=== PATIENT | male | born 1955 | race Caucasian/White ===

== ENCOUNTER 2016-06-11 21:53 | Emergency (ER) | payer OTHER ==
[2016-06-11 22:10] VITALS: BP 180/90
[2016-06-11] MEDS ORDERED: Lidocaine 1% with EPINEPHrine 1:100,000 50 ML MDV INFILT ONE (22:10)
[2016-06-11] MEDS ORDERED: Bacitracin Oint 1 GM U/D Packet TOP ONE (22:44)
--- NOTE | 2016-06-11 22:48 | EDM.PDOC ---
[id number] PROCEEDURE EARLIER WONT STOP BLEEDING Time Seen by Provider: 06/11/16 22:20 Source: Reports: Patient History Limitations: Reports: No limitations - History of Present Illness INITIAL COMMENTS - FREE TEXT/NARRATIVE: 60-year-old male who is a benign-appearing vascular mole on his chest that was incised earlier today by another physician. He continues to bleed. Timing: Reports: still present Location, Skin: Reports: chest - Related Data Allergies Allergy/AdvReac Type Severity Reaction Status Date / Time No Known Allergies Allergy Verified 06/11/16 22:11 Home Meds: Ambulatory Orders Medication Instructions Recorded Confirmed Aspirin [Ecotrin] 81 mg PO DAILY 06/11/16 06/11/16 Lisinopril 40 mg PO DAILY 06/11/16 06/11/16 Metoprolol Tartrate 25 mg PO BID 06/11/16 06/11/16 atorvaSTATin [Lipitor] 80 mg PO BEDTIME 06/11/16 06/11/16 Past Medical History Cardiovascular History: Reports: High cholesterol, Hypertension Oncologic (Cancer) History: Reports: Prostate Dermatologic History: Reports: Other (see below) Other Dermatologic History: Chest skin lesion - Past Surgical History Cardiovascular Surgical History: Reports: Percutaneous transluminal angioplasty Male Surgical History: Reports: Prostatectomy Oncologic Surgical History: Reports: Other (see below) Other Oncologic Surgeries/Procedures: prostrate Dermatological Surgical History: Reports: Other (see below) Social & Family History - Tobacco Use Smoking Status *Q: Former Smoker Used Tobacco, but Quit: Yes Month Tobacco Last Used: can't remember - Caffeine Use Caffeine Use: Reports: Coffee, Soda - Recreational Drug Use Recreational Drug Use: No ED ROS GENERAL - Review of Systems Review Of Systems: See Below Constitutional: Denies: fever, chills Respiratory: Denies: Shortness of Breath, Cough GI/Abdominal: Denies: Abdominal pain, Nausea, Vomiting ED EXAM, SKIN/RASH Exam: See Below Exam Limited By: No limitations General Appearance: alert, no apparent distress Respiratory/Chest: no respiratory distress, other (Just left of the sternum the patient has a bleeding, smooth, dark mole like lesion with a central puncture which is actively bleeding) Course - Vital Signs Last Recorded V/S: Last Vital Signs Temp 97.9 F 06/11/16 22:10 Pulse 103 H 06/11/16 22:10 Resp 16 06/11/16 22:10 BP 180/90 H 06/11/16 22:10 Pulse Ox 98 06/11/16 22:10 - Orders/Labs/Meds Meds: Medications Discontinued Medications Generic Name Dose Route Start Last Admin Trade Name Gurvinder PRN Reason Stop Dose Admin Bacitracin 1 dose 06/11/16 22:44 06/11/16 23:03 Bacitracin Oint 1 Gm TOP 06/11/16 22:45 1 dose ONETIME ONE Administration Lidocaine/Epinephrine 30 ml 06/11/16 22:10 06/11/16 23:02 Xylocaine 1% With Epinephrine 1:100,000 INFILT 06/11/16 22:11 3 ml ONETIME ONE Administration - Re-Assessments/Exams Free Text/Narrative Re-Assessment/Exam: 06/11/16 22:47 The area was infiltrated with 1% lidocaine with epinephrine. Using a #11 scalpel an elliptical incision was made around the lesion and it was removed with blunt dissection. A small amount of undermining was done with a curved iris scissors and 5 4-0 Ethilon sutures were used to close the laceration. Bacitracin and a Band-Aid were applied. It was offered to send the lesion to pathology but the patient declined. Departure - Departure Time of Disposition: 23:07 Disposition: Home, Self-Care 01 Condition: good Clinical Impression: Postoperative hemorrhage of skin following dermatologic procedure Instructions: Sutured Wound Care Referrals: PCP,None [Primary Care Provider] - Forms: ED Department Discharge Care Plan Goals: Keep wound covered and clean while healing, and sutures can be removed in 7-10 days.
== END 2016-06-11 23:07 | disposition home or self-care (01) ==
LOC: JP.ED 21:53
PROC: 0HB5XZZ Excision of Chest Skin, External Approach (ICD-10-PCS; principal; 2016-06-11)
DX: L76.21 Postprocedural hemorrhage of skin and subcutaneous tissue following a dermatologic procedure (principal); Y83.8 Other surgical procedures as the cause of abnormal reaction of the patient, or of later complication, without mention of misadventure at the time of the procedure; E78.00 Pure hypercholesterolemia, unspecified; I10 Essential (primary) hypertension; Z98.61 Coronary angioplasty status; Z87.891 Personal history of nicotine dependence; Z79.82 Long term (current) use of aspirin; Z79.899 Other long term (current) drug therapy
CPT/HCPCS: 11402; 99283-25